=== PATIENT | female | born 1980 | race African-American/Black ===

== ENCOUNTER → 2016-12-18 | Outpatient (CLI) | payer BC, OTHER | END | disposition home or self-care (01) | LOC: LABWHC1 12:26 | PROVIDERS: ATTEND Obstetrics & Gynecology | DX: Z34.81 Encounter for supervision of other normal pregnancy, first trimester (principal); Z3A.00 Weeks of gestation of pregnancy not specified | CPT/HCPCS: 36415; 84702 ==

== ENCOUNTER 2016-12-19 08:29 | Emergency (ER) | payer BC, OTHER ==
--- NOTE | 2016-12-19 08:48 | ED ---
General Adult HPI - General Chief complaint: OB/Uterine Contractions Stated complaint: 6 WEEKS PREG AND BLEEDING Time Seen by Provider: 12/19/16 08:43 Source: patient, RN notes reviewed Mode of arrival: ambulatory Limitations: no limitations - History of Present Illness Initial comments: Patient 36-year-old female who presents emergency room today with a chief complaint of vaginal spotting times one day. She does admit to being 6 weeks and off the last menstrual cycle. She states she is G4, P2, 1 previous miscarriage. Patient denies any abdominal pain or cramping. She states that she came here to the emergency room because she is concerned about possible miscarriage as she's had one in the past. She denies any other complaints or symptoms at this time. Patient denies any recent fever, chills, shortness of breath, chest pain, back pain, abdominal pain, nausea or vomiting, numbness or tingling, dysuria or hematuria, constipation or diarrhea, headaches or visual changes, or any other complaints. - Related Data Home Medications Medication Instructions Recorded Confirmed Ils-Iagw-Tpxcz Acid 1 cap PO DAILY 12/19/16 12/19/16 [-U Capsule (formulary)] Allergies Allergy/AdvReac Type Severity Reaction Status Date / Time No Known Allergies Allergy Verified 12/19/16 08:53 Review of Systems ROS Statement: Those systems with pertinent positive or pertinent negative responses have been documented in the HPI. ROS Other: All systems not noted in ROS Statement are negative. 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 BRAIN METASTASIS Father Family Medical History: Cancer, Diabetes Mellitus, Deep Vein Thrombosis (DVT) General Exam - General Exam Comments Initial Comments: General: The patient is awake and alert, in no distress, and does not appear acutely ill. Eye: Pupils are equal, round and reactive to light, extra-ocular movements are intact. No nystagmus. There is normal conjunctiva bilaterally. No signs of icterus. Ears, nose, mouth and throat: There are moist mucous membranes and no oral lesions. Neck: The neck is supple, there is no tenderness or JVD. Cardiovascular: There is a regular rate and rhythm. No murmur, rub or gallop is appreciated. Respiratory: Lungs are clear to auscultation, respirations are non-labored, breath sounds are equal. No wheezes, stridor, rales, or rhonchi. Gastrointestinal: Soft, non-distended, non-tender abdomen without masses or organomegaly noted. There is no rebound or guarding present. No CVA tenderness. Bowel sounds are unremarkable. Musculoskeletal: Normal ROM, no tenderness. Strength 5/5. Sensation intact. Pulses equal bilaterally 2+. Neurological: A&O x 3. CN II-XII intact, There are no obvious motor or sensory deficits. Coordination appears grossly intact. Speech is normal. Skin: Skin is warm and dry and no rashes or lesions are noted. Psychiatric: Cooperative, appropriate mood & affect, normal judgment. Limitations: no limitations Course Vital Signs 12/19/16 08:33 Temperature 98.4 F Pulse Rate 85 Respiratory 20 Rate Blood Pressure 114/70 O2 Sat by Pulse 98 Oximetry Medical Decision Making - Medical Decision Making Patient's son does show 1. Single live intrauterine with estimated gestational age of 6 weeks 0 days by last menstrual period. Current ultrasound biometry is small and slightly discordant (5 weeks 3 days by crown rump length) . 2. The gestational sac is even smaller measuring 5 weeks 0 days. 3. Given the patient's symptoms and the above findings recommend a short interval follow- up to ensure that appropriate growth. 4. heart rates are 11 bpm is in the normal range for less than 6 week gestation. 5. Corpus luteum in the right ovary. Possible second corpus luteum measuring 1.3 cm in the left ovary versus some other, nonspecific lesion, Intemal vascularity is present. This can also be reassessed at the follow-up. 6. A 2.0 cm left adnexal cyst, likely. Ovarian cyst. Patient's beta hCG reviewed today is 336. Patient's beta hCG from 1 day ago was 320. Patient's Rh+. Remaining labs reviewed. At this time patient will be discharged advised to follow-up with her BEE [facility]CH[facility]. Advised return if any symptoms increase or worsen or for any other concerns. - Lab Data Result diagrams: 12/19/16 08:50 12/19/16 08:50 Lab Results 12/19/16 12/19/16 12/19/16 Range/Units 08:45 08:50 08:50 WBC 5.0 (3.8-10.6) k/uL RBC 3.54 L (3.80-5.40) m/uL Hgb 11.8 (11.4-16.0) gm/dL Hct 34.4 (34.0-46.0) % MCV 97.2 (80.0-100.0) fL MCH 33.5 (25.0-35.0) pg MCHC 34.4 (31.0-37.0) g/dL RDW 12.8 (11.5-15.5) % Plt Count 240 (150-450) k/uL Neutrophils % 60 % Lymphocytes % 29 % Monocytes % 5 % Eosinophils % 3 % Basophils % 0 % Neutrophils # 3.0 (1.3-7.7) k/uL Lymphocytes # 1.5 (1.0-4.8) k/uL Monocytes # 0.3 (0-1.0) k/uL Eosinophils # 0.1 (0-0.7) k/uL Basophils # 0.0 (0-0.2) k/uL Sodium (137-145) mmol/L Potassium (3.5-5.1) mmol/L Chloride (98-107) mmol/L Carbon Dioxide (22-30) mmol/L Anion Gap mmol/L BUN (7-17) mg/dL Creatinine (0.52-1.04) mg/dL Est GFR (MDRD) Af Amer (>60 ml/min/1.73 sqM) Est GFR (MDRD) Non-Af (>60 ml/min/1.73 sqM) Glucose (74-99) mg/dL Calcium (8.4-10.2) mg/dL Total Bilirubin (0.2-1.3) mg/dL AST (14-36) U/L ALT (9-52) U/L Alkaline Phosphatase (38-126) U/L Total Protein (6.3-8.2) g/dL Albumin (3.5-5.0) g/dL HCG, Quant mIU/mL Urine Color Light Yellow Urine Appearance Clear (Clear) Urine pH 6.5 (5.0-8.0) Ur Specific [place] 1.011 (1.001-1.035) Urine Protein Negative (Negative) Urine Glucose (UA) Negative (Negative) Urine Ketones Negative (Negative) Urine Blood Moderate H (Negative) Urine Nitrite Negative (Negative) Urine Bilirubin Negative (Negative) Urine Urobilinogen <2.0 (<2.0) mg/dL Ur Leukocyte Esterase Negative (Negative) Urine RBC <1 (0-5) /hpf Urine WBC <1 (0-5) /hpf Ur Squamous Epith Cells <1 (0-4) /hpf Blood Type A Positive Blood Type Recheck No 12/19/16 Range/Units 08:50 WBC (3.8-10.6) k/uL RBC (3.80-5.40) m/uL Hgb (11.4-16.0) gm/dL Hct (34.0-46.0) % MCV (80.0-100.0) fL MCH (25.0-35.0) pg MCHC (31.0-37.0) g/dL RDW (11.5-15.5) % Plt Count (150-450) k/uL Neutrophils % % Lymphocytes % % Monocytes % % Eosinophils % % Basophils % % Neutrophils # (1.3-7.7) k/uL Lymphocytes # (1.0-4.8) k/uL Monocytes # (0-1.0) k/uL Eosinophils # (0-0.7) k/uL Basophils # (0-0.2) k/uL Sodium 140 (137-145) mmol/L Potassium 4.0 (3.5-5.1) mmol/L Chloride 108 H (98-107) mmol/L Carbon Dioxide 22 (22-30) mmol/L Anion Gap 10 mmol/L BUN 8 (7-17) mg/dL Creatinine 0.63 (0.52-1.04) mg/dL Est GFR (MDRD) Af Amer >60 (>60 ml/min/1.73 sqM) Est GFR (MDRD) Non-Af >60 (>60 ml/min/1.73 sqM) Glucose 99 (74-99) mg/dL Calcium 9.4 (8.4-10.2) mg/dL Total Bilirubin 0.5 (0.2-1.3) mg/dL AST 18 (14-36) U/L ALT 20 (9-52) U/L Alkaline Phosphatase 53 (38-126) U/L Total Protein 7.3 (6.3-8.2) g/dL Albumin 4.1 (3.5-5.0) g/dL HCG, Quant 336.6 mIU/mL Urine Color Urine Appearance (Clear) Urine pH (5.0-8.0) Ur Specific [place] (1.001-1.035) Urine Protein (Negative) Urine Glucose (UA) (Negative) Urine Ketones (Negative) Urine Blood (Negative) Urine Nitrite (Negative) Urine Bilirubin (Negative) Urine Urobilinogen (<2.0) mg/dL Ur Leukocyte Esterase (Negative) Urine RBC (0-5) /hpf Urine WBC (0-5) /hpf Ur Squamous Epith Cells (0-4) /hpf Blood Type Blood Type Recheck Disposition Clinical Impression: Threatened miscarriage Disposition: HOME SELF-CARE Condition: Good Instructions: Threatened Miscarriage (ED) Additional Instructions: Please follow-up with BEE RANCHER over the next 2 days. Please return to emergency room if the symptoms increase or worsen or for any other concerns. Referrals: Juanito Cherry MD [Primary Care Provider] - 1-2 days Erika Lebron DO [Doctor of Osteopathic Medicine] - 1-2 days Time of Disposition: 10:30
[2016-12-19 09:21] LABS: Basophils % (A) 0 %; CH 32.6; CHCM 33.6; Eosinophils # (A) 0.1 k/uL (0-0.7); Eosinophils % (A) 3 %; HCT 34.4 % (34.0-46.0); HDW 2.05; HGB 11.8 gm/dL (11.4-16.0); Luc # (Auto) 0.14; Luc % (Auto) 3; Lymphocytes # (A) 1.5 k/uL (1.0-4.8); Lymphocytes % (A) 29 %; MCH 33.5 pg (25.0-35.0); MCHC 34.4 g/dL (31.0-37.0); MCV 97.2 fL (80.0-100.0); Monocytes # (A) 0.3 k/uL (0-1.0); Monocytes % (A) 5 %; Neutrophils % (A) 60 %; RBC 3.54 m/uL (3.80-5.40); RDW 12.8 % (11.5-15.5); WBC (Perox) 4.82
[2016-12-19 09:25] LABS: Appearance,Urine Clear (Clear); Bilirubin,Urine Negative (Negative); Glucose,Urine (UA) Negative (Negative); Ketones,Urine Negative (Negative); Leukocyte Esterase,Urine Negative (Negative); Nitrite,Urine Negative (Negative); PH, Urine 6.5 (5.0-8.0); Particle Count 1791; Protein,Urine Negative (Negative); RBC,Urine <1 /hpf (0-5); Specific Gravity,Urine 1.011 (1.001-1.035); Squamous Epithelial Cell,Urine <1 /hpf (0-4); UA Billing (MACRO vs. MICRO) MICRO; Urobilinogen,Urine <2.0 mg/dL (<2.0); WBC,Urine <1 /hpf (0-5)
[2016-12-19 09:35] LABS: ALT 20 U/L (9-52); AST 18 U/L (14-36); Alkaline Phosphatase 53 U/L (38-126); Anion Gap 10 mmol/L; Blood Urea Nitrogen 8 mg/dL (7-17); Calcium 9.4 mg/dL (8.4-10.2); Carbon Dioxide 22 mmol/L (22-30); Chloride 108 mmol/L (98-107); Glucose 99 mg/dL (74-99); Non-African American GFR(MDRD) >60 (>60 ml/min/1.73 sqM); Sodium 140 mmol/L (137-145); Total Bilirubin 0.5 mg/dL (0.2-1.3); Total Protein 7.3 g/dL (6.3-8.2)
[2016-12-19 09:47] LABS: HCG,Quantitative Serum 336.6 mIU/mL
--- NOTE | 2016-12-19 10:23 | US ---
EXAMINATION TYPE: US OB <=14 wks transvag DATE OF EXAM: 12/19/2016 9:43 AM COMPARISON: 08/30/2015 CLINICAL HISTORY: 36-year-old female with Pain. Spotting x yesterday. No pain or cramping. Hx of mi scarriage. Hx of cervical CA. No prior US for this Date of LMP: 11/07/2016, EXAM PERFORMED: Transvaginal (TV) and Transabdominal (TA) FINDINGS: EXAM MEASUREMENTS: GESTATIONAL AGE / DATING Dates by LMP: (6 weeks/0 days) EDC: 08/14/2017 Dates by Current Scan: ( 5 weeks/3 days +/- 3 days) EDC: 08/18/2017 MATERNAL ANATOMY Uterus: Measures 9.3 x 5.2 x 5.3 cm. There is a 1.0 x 0.6 x 0.9 cm hypoechoic area within the anterio r right fundal myometrium suggestive of a focal fibroid. Right Ovary: 3.2 x 1.9 x 2.6 cm Left Ovary: 2.9 x 1.8 x 1.8 cm Post CDS / Adnexa: no free fluid. Cystic lesion seen in left adnexa = 2.0 x 2.0 x 1.7 cm, probable p araovarian cyst. Presence of corpus luteal cyst: Right ovary, 1.4 x 1.1 x 1.0 cm. Left ovarian lesion is hypoechoic wi th a internal vascularity measuring 1.3 x 0.8 x 1.2 cm. 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 Cystic lesion seen in left adnexa. FHT appears low. GS appears small with limited amniotic fluid. No YS seen. Bilateral ovar tami lesions. IMPRESSION: 1. Single live intrauterine with estimated gestational age of 6 weeks 0 days by LMP. Curren t ultrasound biometry is smaller and slightly discordant (5 weeks 3 days by crown-rump length). 2. The gestational sac is even smaller measuring at 5 weeks 0 days. 3. Given the patient's symptoms and the above findings, recommend short interval follow-up to ensure appropriate growth. 4. heart rate of 111 BPM is in the normal range for a less than 6.3 week gestation. 5. Corpus luteum in the right ovary. Possible second corpus luteum measuring 1.3 cm in the left ovary versus some other, nonspecific lesion. Internal vascularity is present. This can also be reassessed at follow-up. 6. A 2.0 cm left adnexal cyst, likely paraovarian cyst.
[2016-12-19 10:51] VITALS: BP 120/59; PULSE 95; RESP 16; TEMP 99.1
== END 2016-12-19 10:49 | disposition home or self-care (01) ==
LOC: EC 08:29
DX: O20.0 Threatened abortion (principal); O34.81 Maternal care for other abnormalities of pelvic organs, first trimester; N83.202 Unspecified ovarian cyst, left side; Z79.899 Other long term (current) drug therapy; Z3A.01 Less than 8 weeks gestation of pregnancy
CPT/HCPCS: 36415; 76801; 76817; 80053; 81001; 84702; 85025; 86900; 86901; 87086; 99284

== ENCOUNTER → 2016-12-20 | Outpatient (CLI) | payer BC, OTHER | END | disposition home or self-care (01) | LOC: LABWHC1 13:45 | PROVIDERS: ATTEND Obstetrics & Gynecology | DX: Z34.81 Encounter for supervision of other normal pregnancy, first trimester (principal); Z3A.00 Weeks of gestation of pregnancy not specified | CPT/HCPCS: 36415; 84702 ==

== ENCOUNTER → 2016-12-24 | Outpatient (CLI) | payer BC, OTHER ==
--- NOTE | 2016-12-24 11:22 | US ---
EXAMINATION TYPE: US OB <=14 wks transvag DATE OF EXAM: 12/24/2016 11:00 AM COMPARISON: 12/19/2016 CLINICAL HISTORY: Abn Clinical Findin R68.89,Irregular rise in B HCG. hcg levels not elevating EXAM PERFORMED: Transvaginal (TV) and Transabdominal (TA) EXAM MEASUREMENTS: GESTATIONAL AGE / DATING Physician Established: not established Dates by LMP: ( 6 weeks/5 days) EDC: 08/14/2016 Dates by First Scan: (6 weeks/1 days) EDC: 08/18/2016 Dates by Current Scan for: no IUP seen EDC: MATERNAL ANATOMY Uterus: 8.5 x 3.8 x 6.0 cm fundal hypoechoic area 0.7 x0.7 x 0.8 cm seen prior study Right Ovary: 1.9 x 2.6 x 2.5 cm Left Ovary: 2.5 x 1.8 x 1.8 cm Post CDS / Adnexa: left cyst 2.0 x 1.3 x 1.8 cm Presence of free fluid: no Presence of corpus luteal cyst: left Presence of subchorionic bleed: no GESTATION / SURVEY IUP: No IUP seen at this time Date of LMP: 11/07/2016 Beta HcG (if available): na Cystic focus associated with the left adnexa as on prior. IMPRESSION: There may be some local fluid along the endometrium, retained products, follow-up suggested. No pregn mirian is identified.
== END | disposition home or self-care (01) ==
LOC: RADUSWWP 10:21
PROVIDERS: ATTEND Obstetrics & Gynecology
DX: O28.1 Abnormal biochemical finding on antenatal screening of mother (principal); Z3A.00 Weeks of gestation of pregnancy not specified
CPT/HCPCS: 76801; 76817

== ENCOUNTER → 2017-01-23 | Outpatient (CLI) | payer BC, OTHER ==
--- NOTE | 2017-01-23 13:21 | XR ---
EXAMINATION TYPE: XR cervical spine comp DATE OF EXAM ORDERED: 01/23/2017 HISTORY: M54.2 Cervicalgia. COMPARISON: None. FINDINGS: There is a mild reversal of normal cervical lordosis. Alignment is normal. Atlantoaxial re lationships are normal. There is disc space loss at C5-6 and C6-7. There is mild hypertrophic spondylosis at C6-7. There is i ntervertebral foraminal narrowing on the left at C3-4 and C4-5 as well as C6-7 and on the right at C3 -4 and C4-5. The uncovertebral joints are unremarkable. Prevertebral soft tissues are normal. IMPRESSION: 1. NO ACUTE OSSEOUS LESION. 2. MILD DEGENERATIVE CHANGE. 3. MULTILEVEL INTERVERTEBRAL FORAMINAL NARROWING.
== END | disposition home or self-care (01) ==
LOC: RADXRMAIN 11:53
PROVIDERS: ATTEND Family Medicine
DX: M99.71 Connective tissue and disc stenosis of intervertebral foramina of cervical region (principal); M47.812 Spondylosis without myelopathy or radiculopathy, cervical region
CPT/HCPCS: 72050

== ENCOUNTER 2017-06-30 15:42 | Emergency (ER) | payer BC, OTHER ==
--- NOTE | 2017-06-30 17:40 | XR ---
EXAMINATION TYPE: XR foot complete RT DATE OF EXAM: 06/30/2017 COMPARISON: NONE HISTORY: Ankle pain TECHNIQUE: 3 views FINDINGS: Metatarsals appear intact. I see no fracture nor dislocation. Joint spaces are normal. IMPRESSION: Negative right foot exam.
--- NOTE | 2017-06-30 17:44 | ED ---
Extremity Problem HPI - General Chief complaint: Extremity Problem,Nontraumatic Stated complaint: ankle injury Time Seen by Provider: 06/30/17 16:53 Source: patient, RN notes reviewed Mode of arrival: ambulatory Limitations: no limitations - History of Present Illness Initial comments: This is a 37-year-old female who presents to the emergency department with chief complaint of right ankle and foot pain. Patient denies any specific injury or trauma. She states she fell going down the stairs a week ago but does not remember injuring her right lower extremity. She states that 3 days ago her medial right foot began to hurt. She states that this morning her right ankle became swollen. She states pain is most prevalent with plantar flexion of the foot. She states she ambulates normally and is able to bear weight. Denies fever, chills, chest pain, shortness of breath, abdominal pain, nausea or vomiting, constipation or diarrhea, dysuria or hematuria, numbness or tingling, headache or vision changes. - Related Data Home Medications Medication Instructions Recorded Confirmed Grd-Untz-Tyigw Acid 1 cap PO DAILY 12/19/16 12/19/16 [-U Capsule (formulary)] Previous Rx's Medication Instructions Recorded Ibuprofen 600 mg PO Q6HR #20 tablet 06/30/17 Allergies Allergy/AdvReac Type Severity Reaction Status Date / Time No Known Allergies Allergy Verified 06/30/17 15:48 Review of Systems ROS Statement: Those systems with pertinent positive or pertinent negative responses have been documented in the HPI. ROS Other: All systems not noted in ROS Statement are negative. 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 BRAIN METASTASIS Father Family Medical History: Cancer, Diabetes Mellitus, Deep Vein Thrombosis (DVT) General Exam - General Exam Comments Initial Comments: General: Awake and alert, well-developed; in no apparent distress. HEENT: Head atraumatic, normocephalic. Pupils are equal, round and reactive to light. Extraocular movements intact. Oropharynx moist without erythema or exudate. Neck: Supple. Normal ROM. Cardiovascular: Regular rate and rhythm. No murmurs, rubs or gallops. Chest symmetrical. Respiratory: Lungs clear to auscultation bilaterally. No wheezes, rales or rhonchi. Normal respiratory effort with no use of accessory muscles. Musculoskeletal: Patient has normal active and passive range of motion of right ankle and foot. There is tenderness on palpation of dorsal aspect of foot. There is mild swelling of the ankle noted but no tenderness on palpation. Sensation is intact. Pedal pulses are 2+ equal and palpable bilaterally. Skin: [place], warm and dry without rashes or lesions. Neurological: Alert and oriented x3. CN II-XII grossly intact. Speech is fluent and answers are appropriate. No focal neuro deficits. Psychiatric: Normal mood and affect. No overt signs of depression or anxiety noted. Limitations: no limitations Course Vital Signs 06/30/17 15:46 Temperature 98.1 F Pulse Rate 79 Respiratory 20 Rate Blood Pressure 154/72 O2 Sat by Pulse 100 Oximetry Medical Decision Making - Medical Decision Making This is a 37-year-old female who presents to the emergency department with chief complaint of right foot pain. Patient denies any specific injury or trauma. Pain is elicited at dorsal aspect of right foot with plantarflexion. X- ray of ankle and foot reveal no acute fractures or dislocations. Patient likely suffering from a tendinitis of the extensor tendon of right great toe. Patient will be discharged home with a prescription for ibuprofen. Recommended rest and ice. She is to follow-up with her primary care provider in 1-2 days. Patient is in agreement with plan voices understanding. All questions were answered. - Radiology Data Radiology results: report reviewed X-ray right foot findings: Metatarsals intact. I see no fracture nor dislocation. Joint spaces are normal. Impression: Negative right foot exam. X-ray right ankle findings: Ankle mortise is anatomic. I see no fracture nor dislocation. Joint spaces are fairly normal. Impression: Negative right ankle exam Disposition Clinical Impression: Tendinitis of right foot Disposition: HOME SELF-CARE Condition: Good Instructions: Tendinitis (ED) Additional Instructions: Please take medications as prescribed. Please follow up with primary care provider within 1-2 days. Return to emergency department if symptoms should worsen or any concerns arise. Prescriptions: Ibuprofen 600 mg PO Q6HR #20 tablet Referrals: Juanito Cherry MD [Primary Care Provider] - 1-2 days Time of Disposition: 18:15
--- NOTE | 2017-06-30 17:54 | XR ---
EXAMINATION TYPE: XR ankle complete RT DATE OF EXAM: 06/30/2017 COMPARISON: NONE HISTORY: Pain TECHNIQUE: 3 views FINDINGS: Ankle mortise is anatomic. I see no fracture nor dislocation. Joint spaces are fairly keagan l. IMPRESSION: Negative right ankle exam
[2017-06-30 18:20] VITALS: BP 134/75; PULSE 72; RESP 18; TEMP 98.3
== END 2017-06-30 18:20 | disposition home or self-care (01) ==
LOC: EC 15:42
DX: M77.51 Other enthesopathy of right foot and ankle (principal); M79.89 Other specified soft tissue disorders; M25.571 Pain in right ankle and joints of right foot; Z79.899 Other long term (current) drug therapy
CPT/HCPCS: 99283

== ENCOUNTER → 2017-09-01 | Outpatient (CLI) | payer OTHER ==
[2017-09-01 17:13] LABS: ALT 22 U/L (9-52); AST 22 U/L (14-36); Albumin 4.3 g/dL (3.5-5.0); Alkaline Phosphatase 58 U/L (38-126); Anion Gap 9 mmol/L; Blood Urea Nitrogen 10 mg/dL (7-17); Carbon Dioxide 30 mmol/L (22-30); Chloride 103 mmol/L (98-107); Glucose 83 mg/dL (74-99); Potassium 3.8 mmol/L (3.5-5.1); Sodium 142 mmol/L (137-145); Total Bilirubin 0.2 mg/dL (0.2-1.3); Total Protein 7.3 g/dL (6.3-8.2); Uric Acid 4.5 mg/dL (3.7-7.4)
[2017-09-01 17:14] LABS: C Reactive Protein <5.0 mg/L (<10.0)
[2017-09-01 17:27] LABS: T4, Free (Free Thyroxine) 0.74 ng/dL (0.78-2.19)
[2017-09-02 01:33] LABS: Rheumatoid Factor 4 IU/mL (0-15)
== END | disposition home or self-care (01) ==
LOC: LABWHC1 16:43
PROVIDERS: ATTEND Family Medicine
DX: M25.871 Other specified joint disorders, right ankle and foot (principal); M25.562 Pain in left knee; R60.0 Localized edema
CPT/HCPCS: 36415; 80053; 84439; 84443; 84550; 85652; 86038; 86140; 86431

== ENCOUNTER → 2017-09-01 | Outpatient (CLI) | payer OTHER ==
[2017-09-01 17:01] LABS: Basophils % (A) 0 %; Eosinophils # (A) 0.1 k/uL (0-0.7); Eosinophils % (A) 1 %; HCT 38.4 % (34.0-46.0); HGB 12.6 gm/dL (11.4-16.0); Lymphocytes # (A) 2.2 k/uL (1.0-4.8); Lymphocytes % (A) 40 %; MCHC 32.8 g/dL (31.0-37.0); MCV 97.6 fL (80.0-100.0); Mean Platelet Volume 6.9; Monocytes # (A) 0.3 k/uL (0-1.0); Monocytes % (A) 6 %; Neutrophils # (A) 2.7 k/uL (1.3-7.7); Neutrophils % (A) 49 %; Platelet Count 255 k/uL (150-450); RBC 3.93 m/uL (3.80-5.40); RDW 12.5 % (11.5-15.5); WBC 5.6 k/uL (3.8-10.6)
== END | disposition home or self-care (01) ==
LOC: LABPAT 16:40
PROVIDERS: ATTEND Obstetrics & Gynecology
DX: Z01.812 Encounter for preprocedural laboratory examination (principal)
CPT/HCPCS: 36415; 80053; 84439; 84443; 84550; 85025; 85652; 86038; 86140; 86431

== ENCOUNTER 2017-09-09 06:58 | Day surgery (SDC) | payer BC, OTHER ==
[2017-09-04 15:07] VITALS: BMI 26.6
--- NOTE | 2017-09-08 17:14 | P.HPOB ---
History of Present Illness H&P Date: 09/08/17 Chief Complaint: Family Planning 37 year old presents for Laparoscopic tubal ligation. Review of Systems All systems: negative Constitutional: Denies chills, Denies fever Eyes: denies blurred vision, denies pain Ears, nose, mouth and throat: Denies headache, Denies sore throat Cardiovascular: Denies chest pain, Denies shortness of breath Respiratory: Denies cough Gastrointestinal: Denies abdominal pain, Denies diarrhea, Denies nausea, Denies vomiting Genitourinary: Denies dysuria, Denies hematuria Musculoskeletal: Denies myalgias Integumentary: Denies pruritus, Denies rash Neurological: Denies numbness, Denies weakness Psychiatric: Denies anxiety, Denies depression Endocrine: Denies fatigue, Denies weight change Past Medical History Past Medical History: Asthma Additional Past Medical History / Comment(s): DJD neck and back, History of Any Multi-Drug Resistant Organisms: None Reported Past Surgical History: Cholecystectomy Additional Past Surgical History / Comment(s): bunionectomy, djd in neck and back, LEEP procedure Past Anesthesia/Blood Transfusion Reactions: No Reported Reaction Smoking Status: Never smoker - Past Family History Mother Family Medical History: Cancer Additional Family Medical History / Comment(s): SMALL CELL LUNG CANCER. BRAIN METASTASIS Father Family Medical History: Cancer, Diabetes Mellitus, Deep Vein Thrombosis (DVT) Medications and Allergies Home Medications Medication Instructions Recorded Confirmed Type HYDROcodone/APAP 10-325MG [[place] 1 tab PO Q6H PRN 09/04/17 09/04/17 History 10-325] Allergies Allergy/AdvReac Type Severity Reaction Status Date / Time No Known Allergies Allergy Verified 09/04/17 14:45 Exam Osteopathic Statement: *. No significant issues noted on an osteopathic structural exam other than those noted in the History and Physical/Consult. Heart: RRR Lungs: CTAB ABdomen: soft, nontender Extremeties: neg david's Assessment and Plan (1) Family planning Status: Acute Code(s): Z30.09 - ENCOUNTER FOR OTH GENERAL CNSL AND ADVICE ON CONTRACEPTION SNOMED Code(s): 981208230 Plan: 1. Laparoscopic tubal ligation
[~2017-09-09 06:58] MED LIST: DEXAMETHASONE SOD PHOSPHATE 10 MG/ML 1 ML VIAL IV ONE; HYDROmorphone 0.5 MG/0.5 ML SYRINGE IVP PRN; LACTATED RINGERS 1,000 ML IV SCH; LIDOCAINE 1% 20 ML VIAL (10MG/ML) FOR IV START INTRADERMA PRN; Pre Op ABX Message 1 EACH MISC MISCELLANE ONE; SCOPOLAMINE 1.5MG/72HR PATCH TRANSDERM ONE
[2017-09-09] MEDS ORDERED: BUPIVACAINE (PF) 0.25% 30 ML VIAL SQ ONE ×2 (07:29)
[2017-09-09 07:36] VITALS: RESP 16
[2017-09-09] MEDS: ONDANSETRON 4 MG/2 ML VIAL IVP ONE ×2 (07:37→09:28)
[2017-09-09] MEDS ORDERED: KETOROLAC 30 MG/ML 1 ML VIAL ONE (07:56)
[2017-09-09] MEDS ORDERED: VECURONIUM 10 MG VIAL IV ONE (07:56)
[2017-09-09] MEDS ORDERED: HYDROmorphone (PF) 1 MG/ML ONE (07:56)
[2017-09-09] MEDS ORDERED: LIDOCAINE 1% INJ 10MG/ML (20 ML MDV) ONE (07:56)
[2017-09-09] MEDS ORDERED: MIDAZOLAM 2 MG/2 ML VIAL ONE (07:56)
[2017-09-09] MEDS ORDERED: GLYCOPYRROLATE 0.2 MG/ML 2 ML VIAL ONE (07:56)
[2017-09-09] MEDS ORDERED: SUCCINYLCHOLINE CHLORIDE 100 MG/5 ML SYR IV ONE (07:56)
[2017-09-09] MEDS ORDERED: PROPOFOL 10 MG/ML 20 ML VIAL IV ONE (07:56)
[2017-09-09] MEDS ORDERED: NEOSTIGMINE 1 MG/ML 10 ML VIAL ONE (07:56)
[2017-09-09] MEDS ORDERED: fentaNYL (PF) 50 MCG/ML 2 ML AMP ONE (07:56)
--- NOTE | 2017-09-09 08:39 | P.OP ---
Date of Procedure: 09/09/17 Preoperative Diagnosis: 1. FAmily Planning Postoperative Diagnosis: 1. Family Panning Procedure(s) Performed: Laparoscopic tubal ligation Anesthesia: RAMSEY Surgeon: Erika Lebron Estimated Blood Loss (ml): 5 IV fluids (ml): 700 Urine output (ml): 40 Pathology: none sent Condition: stable Disposition: PACU Operative Findings: normal uterus, tubes and ovaries. bilateral paratubal cysts Description of Procedure: Patient was taken to the operating room where general anesthesia was obtained without difficulty. She was prepped and draped in normal sterile fashion in the dorsal lithotomy position, legs placed in the Jaciel stirrups. Bladder drained of all urine. [place] speculum placed in the vagina and the anterior lip the cervix was grasped with single-tooth tenaculum. The uterus is sounded to 10 cm and the kroner manipulator was placed. Attention was then turned to the abdomen and gloves were changed. A 10 mm infraumbilical incision was made the scalpel and 10 mm optical trocar was placed under direct visualization. A 5 mm suprapubic Incision was made and a 5 mm optical trocar was placed under direct visualization. Survey of the pelvis revealed normal uterus tubes and ovaries. The left fallopian tube was grasped with a Kleppinger and fulgurated 2 -3 cm on this side in the ampullar portion. The right fallopian tube was grasped with a Kleppinger and fulgurated 2-3 cm in the ampullar portion. All instruments were then removed from the abdomen and vagina. The 10 mm infraumbilical incision was closed with 0 Vicryl and the fascial layer and then 4-0 Vicryl in a subcuticular fashion. The 5 mm incision was closed with 4-0 Vicryl in a subcuticular fashion. Patient tolerated procedure well, sponge and instrument counts correct 2 and she was taken to recovery room in stable condition.
[2017-09-09 08:58] VITALS: TEMP 97.2
[2017-09-09] MEDS ORDERED: LACTATED RINGERS 1,000 ML IV ONE (09:42)
[2017-09-09] MEDS ORDERED: MORPHINE SULFATE 4 MG/ML SYRINGE IVP ONE (09:53)
[2017-09-09 11:15] VITALS: BP 135/75; PULSE 75
== END 2017-09-09 11:45 | disposition home or self-care (01) ==
LOC: OR 06:58
PROVIDERS: ATTEND Obstetrics & Gynecology
DX: Z30.2 Encounter for sterilization (principal); N83.8 Other noninflammatory disorders of ovary, fallopian tube and broad ligament; J45.909 Unspecified asthma, uncomplicated
CPT/HCPCS: 81025; 58670; J2250; J2270; J1100; J2710; J2405; J2001; J3010; J1885; J1170; J0330; J2704

== ENCOUNTER → 2018-10-19 | Outpatient (CLI) | payer OTHER ==
--- NOTE | 2018-10-19 11:44 | MM ---
Reason for exam: screening (asymptomatic). Baseline mammogram. History: Patient has history of other cancer at age 36. Family history of breast cancer in mother at age 48 and breast cancer in maternal grandmother at age 50. Physical Findings: Nurse Summary: 1 x 1cm nodule in the left breast at 1 o'clock at nipple (nurse ts). MG 3D Screening Mammo W/Cad Bilateral CC and MLO view(s) were taken. There are scattered fibroglandular densities. There is no discrete abnormality. Palpable marker on the left. These results were verbally communicated with the patient and result sheet given to the patient on 10/19/18. ASSESSMENT: Incomplete: need additional imaging evaluation, BI-RAD 0 RECOMMENDATION: Ultrasound of the left breast. (targeted to palpable)
--- NOTE | 2018-10-19 11:45 | USB ---
Reason for exam: additional evaluation requested from abnormal screening. History: Patient has history of other cancer at age 36. Family history of breast cancer in mother at age 48 and breast cancer in maternal grandmother at age 50. US Breast Workup Limited LT Left limited breast ultrasound including focal area of concern, retroareolar and axilla demonstrates no cystic or solid lesion seen. Scanned 6-9 o'clock, particular attention 7 o'clock near the nipple at the nurse palpated site. These results were verbally communicated with the patient and result sheet given to the patient on 10/19/18. ASSESSMENT: Negative, BI-RAD 1 RECOMMENDATION: Return to routine screening mammogram schedule for both breasts. Manage patient on a clinical basis. Patient should continue monthly self breast exams. A negative report should not preclude additional follow up of suspicious palpable abnormalities.
== END | disposition home or self-care (01) ==
LOC: RADMAMWWP 10:22
PROVIDERS: ATTEND Family Medicine
DX: Z12.31 Encounter for screening mammogram for malignant neoplasm of breast (principal); R92.8 Other abnormal and inconclusive findings on diagnostic imaging of breast
CPT/HCPCS: 77063; 77067

== ENCOUNTER → 2018-12-26 | Outpatient (CLI) | payer OTHER ==
[2018-12-26 13:02] LABS: Basophils % (A) 0 %; Eosinophils # (A) 0.1 k/uL (0-0.7); Eosinophils % (A) 3 %; HCT 39.1 % (34.0-46.0); Lymphocytes % (A) 36 %; MCH 32.2 pg (25.0-35.0); MCHC 33.1 g/dL (31.0-37.0); MCV 97.2 fL (80.0-100.0); Monocytes # (A) 0.3 k/uL (0-1.0); Monocytes % (A) 6 %; Neutrophils # (A) 2.9 k/uL (1.3-7.7); Neutrophils % (A) 53 %; Platelet Count 289 k/uL (150-450); RBC 4.02 m/uL (3.80-5.40); RDW 13.1 % (11.5-15.5); WBC 5.5 k/uL (3.8-10.6)
[2018-12-26 16:10] LABS: Albumin 4.2 g/dL (3.80-4.90); Albumin/Globulin Ratio 1.68 (1.60-3.17); Anion Gap 5.7 mmol/L (4.00-12.00); Calcium 9.8 mg/dL (8.7-10.3); Carbon Dioxide 27.3 mmol/L (21.6-31.8); Globulin 2.5 g/dL (1.6-3.3); LDL Cholesterol,Calculated 60.2 mg/dL (0.0-131.0); Total Bilirubin 0.5 mg/dL (0.2-1.2); Total Protein 6.7 g/dL (6.2-8.2); VLDL Calculation 15.8 mg/dL (5.00-40.00)
[2018-12-26 16:19] LABS: T4, Free (Free Thyroxine) 0.9 ng/dL (0.80-1.80)
== END | disposition home or self-care (01) ==
LOC: LABMAIN 12:25
PROVIDERS: ATTEND Family Medicine
DX: Z51.81 Encounter for therapeutic drug level monitoring (principal); Z79.891 Long term (current) use of opiate analgesic
CPT/HCPCS: 36415; 80053; 80061; 84439; 84443; 85025

== ENCOUNTER 2019-06-11 13:38 | Emergency (ER) | payer OTHER ==
[2019-06-11] MEDS ORDERED: NITROGLYCERIN SL TABS 0.4 MG TAB SUBLINGUAL STA (14:12)
[2019-06-11] MEDS ORDERED: ASPIRIN 81 MG PO STA (14:12)
[2019-06-11 14:41] VITALS: RESP 18
--- NOTE | 2019-06-11 14:49 | ED ---
Chest Pain HPI - General Chief Complaint: Chest Pain Stated Complaint: Palpitations Time Seen by Provider: 06/11/19 13:53 Source: patient Mode of arrival: ambulatory - History of Present Illness Initial Comments: Patient is a 39-year-old female with no significant past medical history is presenting to the emergency department with a chief complaint of shortness of breath and chest pain. Patient she has been battling upper respiratory infection for The last several days but never developed a cough. She states over the last today she developed a gradual onset of palpitations and shortness of breath. Patient reports that she feels like her heart is racing, even at rest sometimes. Patient denies any wheezing. Patient is not a smoker, denies asthma or COPD. Patient does report dyspnea on exertion. Patient reports that her voice is slightly changed due to the recent upper respiratory infection. Patient reports mild lightheadedness but denies any dizziness, headache, nausea, vomiting or blurry vision. Patient denies one-sided weakness or paresthesias. Patient denies cardiac history, hypertension, hypercholesterolemia, diabetes, smoking or family history of heart disease. - Related Data Home Medications Medication Instructions Recorded Confirmed HYDROcodone/APAP 10-325MG [[place] 1 tab PO Q6H PRN 09/04/17 06/11/19 10-325] Allergies Allergy/AdvReac Type Severity Reaction Status Date / Time No Known Allergies Allergy Verified 06/11/19 17:05 Review of Systems ROS Statement: Those systems with pertinent positive or pertinent negative responses have been documented in the HPI. ROS Other: All systems not noted in ROS Statement are negative. EKG Findings - EKG Comments: EKG Findings:: Normal sinus rhythm, no ST changes. Ventricular rate 98, HI interval 144, QRS duration 82, QT/QTC 350/446 Past Medical History Additional Past Medical History / Comment(s): chronic back pain History of Any Multi-Drug Resistant Organisms: None Reported Past Surgical History: Cholecystectomy, Tubal Ligation Additional Past Surgical History / Comment(s): bunionectomy, djd in neck and back Past Anesthesia/Blood Transfusion Reactions: No Reported Reaction Past Psychological History: No Psychological Hx Reported Smoking Status: Never smoker Past Alcohol Use History: Occasional Past Drug Use History: None Reported - Past Family History Mother Family Medical History: Cancer Additional Family Medical History / Comment(s): SMALL CELL LUNG CANCER. BRAIN METASTASIS Father Family Medical History: Cancer, Diabetes Mellitus, Deep Vein Thrombosis (DVT) General Exam Limitations: no limitations General appearance: alert, in no apparent distress Head exam: Present: atraumatic, normocephalic, normal inspection Eye exam: Present: normal appearance, PERRL, EOMI Pupils: Present: normal accommodation ENT exam: Present: normal exam, normal oropharynx, mucous membranes moist, normal external ear exam Neck exam: Present: normal inspection, full ROM Respiratory exam: Present: normal lung sounds bilaterally. Absent: wheezes, chest wall tenderness Cardiovascular Exam: Present: regular rate, normal rhythm, normal heart sounds Extremities exam: Present: normal inspection, full ROM, normal capillary refill Back exam: Present: normal inspection, full ROM Neurological exam: Present: alert, oriented X3 Psychiatric exam: Present: normal affect, normal mood Skin exam: Present: warm, intact, normal color Course Vital Signs 06/11/19 06/11/19 06/11/19 13:43 14:36 14:40 Temperature 98.1 F Pulse Rate 111 H 98 95 Respiratory 18 20 18 Rate Blood Pressure 147/102 126/81 121/80 O2 Sat by Pulse 100 98 99 Oximetry 06/11/19 06/11/19 06/11/19 16:00 16:30 17:00 Temperature Pulse Rate 80 78 84 Respiratory 25 H 18 23 Rate Blood Pressure 132/88 130/89 136/91 O2 Sat by Pulse 100 100 100 Oximetry 06/11/19 06/11/19 17:30 19:11 Temperature 97.9 F Pulse Rate 78 83 Respiratory 18 18 Rate Blood Pressure 131/83 139/78 O2 Sat by Pulse 100 98 Oximetry Chest Pain MDM - Differential Diagnosis ACS - MDM Patient is a 39-year-old female presenting to the emergency department with chief complaint of palpitations shortness of breath. This is been ongoing for the past 2 days. Physical examination is unremarkable. Chest x-ray is negative. EKG is indicative of left axis deviation with no ST changes. Initial troponins are negative. D-dimer negative Patient has a heart score of 2. Patient reports decrease in shortness of breath and palpitations although they're still present. Patient denies any chest pain. Patient reports that she wants to leave and she will be evaluated by sole scraper which she has a close relationship with. Secondary troponins negative. Strict return parameters were thoroughly discussed with patient was understanding and agreeable. Case discussed physician. - Wells Criteria Clinical Symptoms of DVT: (0) No No Alternative Diagnosis: (0) No Immobilization of Surgery in Previous 4 Weeks: (0) No Previous DVT/PE: (0) No Hemoptysis: (0) No Malignancy: (0) No Disposition Clinical Impression: Palpitations with regular cardiac rhythm, Shortness of breath Disposition: HOME SELF-CARE Condition: Stable Instructions (If sedation given, give patient instructions): Chest Pain (ED) Additional Instructions: Please follow up with a sole scraper. Please return to emergency department if symptoms worsen. Is patient prescribed a controlled substance at d/c from ED?: No Referrals: Juainto Cherry MD [Primary Care Provider] - 1-2 days Alban Pinedo MD [STAFF PHYSICIAN] - 1-2 days Time of Disposition: 18:55
[2019-06-11 14:51] LABS: Basophils # (A) 0.1 k/uL (0-0.2); Basophils % (A) 1 %; Eosinophils % (A) 1 %; HCT 37.7 % (34.0-46.0); HGB 12.9 gm/dL (11.4-16.0); Lymphocytes % (A) 31 %; MCHC 34.1 g/dL (31.0-37.0); MCV 96.6 fL (80.0-100.0); Mean Platelet Volume 6.6; Monocytes # (A) 0.4 k/uL (0-1.0); Monocytes % (A) 6 %; Neutrophils # (A) 3.6 k/uL (1.3-7.7); Neutrophils % (A) 57 %; Platelet Count 296 k/uL (150-450); RDW 12.3 % (11.5-15.5); WBC 6.2 k/uL (3.8-10.6)
[2019-06-11 15:04] LABS: ALT 30 U/L (9-52); AST 28 U/L (14-36); African American GFR (CKD) >90 (>60 ml/min/1.73 sqM); Albumin 4.4 g/dL (3.5-5.0); Alkaline Phosphatase 62 U/L (38-126); Anion Gap 10 mmol/L; Blood Urea Nitrogen 8 mg/dL (7-17); Calcium 10.5 mg/dL (8.4-10.2); Carbon Dioxide 25 mmol/L (22-30); Chloride 107 mmol/L (98-107); Glucose 90 mg/dL (74-99); Magnesium 1.9 mg/dL (1.6-2.3); Potassium 3.7 mmol/L (3.5-5.1); Sodium 142 mmol/L (137-145); Total Bilirubin 0.3 mg/dL (0.2-1.3); Total Protein 7.9 g/dL (6.3-8.2)
[2019-06-11 15:08] LABS: D-Dimer 0.4 mg/L FEU (<0.60); INR 0.9 (<1.2); Partial Thromboplastin Time 24.3 sec (22.0-30.0); Prothrombin Time 9.9 sec (9.0-12.0)
--- NOTE | 2019-06-11 15:26 | XR ---
EXAMINATION TYPE: XR chest 2V DATE OF EXAM: 06/11/2019 COMPARISON: 10/25/2015 TECHNIQUE: PA and lateral views submitted. HISTORY: Chest pain FINDINGS: The lungs are clear and there is no pneumothorax, pleural effusion, or focal pneumonia. No overt fa ilure. Hypertrophic change of the spine. IMPRESSION: 1. No acute process.
[2019-06-11 19:13] VITALS: BP 139/78; PULSE 83; TEMP 97.9
== END 2019-06-11 19:11 | disposition home or self-care (01) ==
LOC: EC 13:38
DX: R00.2 Palpitations (principal); R06.02 Shortness of breath; R07.9 Chest pain, unspecified
CPT/HCPCS: 36415; 71046; 80053; 83735; 84484; 85025; 85379; 85610; 85730; 93005; 99285

== ENCOUNTER → 2021-03-01 | Outpatient (CLI) | payer OTHER ==
--- NOTE | 2021-03-05 08:09 | MM ---
Reason for exam: screening (asymptomatic). Last mammogram was performed 1 year ago. History: Patient has history of other cancer at age 36. Family history of breast cancer in paternal aunt, breast cancer in mother at age 48, and breast cancer in maternal grandmother at age 50. Physical Findings: A clinical breast exam by your physician is recommended on an annual basis and results should be correlated with mammographic findings. MG 3D Screening Mammo W/Cad Bilateral CC and MLO view(s) were taken. Prior study comparison: February 28, 2020, bilateral MG 3d screening mammo w/cad. October 19, 2018, bilateral MG 3d screening mammo w/cad. The breast tissue is heterogeneously dense. This may lower the sensitivity of mammography. There is no discrete abnormality. No significant changes when compared with prior studies. ASSESSMENT: Negative, BI-RAD 1 RECOMMENDATION: Routine screening mammogram of both breasts in 1 year.
== END | disposition home or self-care (01) ==
LOC: RADMAMWWP 10:08
PROVIDERS: ATTEND Obstetrics & Gynecology
DX: Z12.31 Encounter for screening mammogram for malignant neoplasm of breast (principal); Z85.9 Personal history of malignant neoplasm, unspecified; Z80.3 Family history of malignant neoplasm of breast
CPT/HCPCS: 77063; 77067

== ENCOUNTER → 2021-11-14 | Outpatient (CLI) | payer OTHER ==
--- NOTE | 2021-11-14 16:45 | XR ---
EXAMINATION TYPE: XR lumbosacral spine min 4V DATE OF EXAM: 11/14/2021 COMPARISON: None HISTORY: Pain degenerative disc changes TECHNIQUE: 5V lumbar spine FINDINGS: There 5 lumbar-type vertebral bodies. The pedicles are intact. Very rudimentary T12 ribs ar e present. Mild facet degenerative changes present L4-5 L5-S1. No spondylolytic defects are evident. Disc heights are preserved. Vertebral body heights are preserved. Alignment is normal. IMPRESSION: 1. Minimal degenerative changes lower lumbar spine facets.
--- NOTE | 2021-11-14 16:49 | XR ---
EXAMINATION TYPE: XR cervical spine comp DATE OF EXAM: 11/14/2021 COMPARISON: 01/23/2017 HISTORY: Degenerative disc changes TECHNIQUE: 5 view cervical spine FINDINGS: On the right foramen there is Mild C3-4, C4-5 foraminal narrowing present. Minimal C5-6 for aminal narrowing may be present. Moderate C6-7 foraminal narrowing is present. On the left foramen there is moderate left C3-4 foraminal narrowing and mild C4-5 foraminal narrowing . Height loss throughout the straightened cervical spine. Posterior spinal lamellar line appears intact . Tip of the odontoid is obscured by overlying incisors. COMPARISON: There may be slight progression of the degenerative disc disease from the comparison stud y. Foraminal stenosis appears similar. IMPRESSION: 1. Mild to moderate foraminal stenosis discussed above, greater on the right. This appears stable fr om comparison. 2. Mild diffuse degenerative disc disease throughout the cervical spine.
== END | disposition home or self-care (01) ==
LOC: RADXRMAIN 09:53
PROVIDERS: ATTEND Family Medicine
DX: M47.817 Spondylosis without myelopathy or radiculopathy, lumbosacral region (principal); M50.30 Other cervical disc degeneration, unspecified cervical region; M99.71 Connective tissue and disc stenosis of intervertebral foramina of cervical region
CPT/HCPCS: 72050; 72110

== ENCOUNTER → 2022-01-01 | Outpatient (CLI) | payer OTHER ==
--- NOTE | 2022-01-01 10:46 | MR ---
EXAMINATION TYPE: MR lumbar spine wo con DATE OF EXAM: 01/01/2022 COMPARISON: Plain film 11/14/2021, lumbar MRI 04/06/2014 HISTORY: LBP, radiates into buttocks. TECHNIQUE: Multiplanar, multisequence images of the lumbar spine were acquired without IV contrast. There is some artifact, motion on exam L1-L2: Stable and unremarkable L2-L3: Minimal posterior disc bulge causes slight anterior mass effect on the thecal sac. L3-L4: There is facet arthropathy with hypertrophy ligamentum flavum causing some posterior lateral m ass effect on the thecal sac. Mild posterior broad-based disc bulge causes slight anterior mass effec t on the thecal sac L4-L5: Posterior disc bulge causes slight anterior mass effect on the thecal sac. There is facet arth ropathy with hypertrophy ligamentum flavum causing posterior lateral mass effect on the thecal sac. N o significant foraminal encroachment. L5-S1: No evident disc herniation, some mild facet arthropathy changes are noted Lumbar segments are intact. Rudimentary rib present at T12 bilaterally. Lumbar vertebral bodies show preserved height and alignment, there is multilevel spondylosis with endplate discogenic marrow sign al change. There is no significant spinal stenosis or foraminal encroachment. No paraspinal masses ar e identified. Conus medullaris has a normal appearance. Disc spaces show a similar appearance to evaristo or, some loss of disc height signal is greatest at L3-4, L2-3 but mild. IMPRESSION:
== END | disposition home or self-care (01) ==
LOC: RADMRIMAIN 08:49
PROVIDERS: ATTEND Family Medicine
DX: M51.16 Intervertebral disc disorders with radiculopathy, lumbar region (principal); M47.26 Other spondylosis with radiculopathy, lumbar region
CPT/HCPCS: 72148

== ENCOUNTER → 2022-03-04 | Outpatient (CLI) | payer OTHER ==
--- NOTE | 2022-03-05 15:57 | MM ---
Reason for Exam: Screening (asymptomatic). Last mammogram was performed 1 year(s) and 1 month(s) ago. Patient History: Menarche at age 9. First Full-Term at age 24. Other cancer, age 36. Maternal grandmother had breast cancer, age 50. Paternal aunt had breast cancer. Mother had breast cancer, age 48. Last menstrual period: 03/04/2022 Risk Values: Denise 5 year model risk: 1.5%. NCI Lifetime model risk: 19.9%. Prior Study Comparison: 10/19/2018 Bilateral Screening Mammogram, [facility]. 02/28/2020 Bilateral Screening Mammogram, [facility]. 03/01/2021 Bilateral Screening Mammogram, [facility]. Tissue Density: The breast tissue is heterogeneously dense. This may lower the sensitivity of mammography. Findings: Analyzed By CAD. No suspicious groups of microcalcifications, spiculated or lobular masses, architectural distortion or other secondary signs of malignancy are mammographically apparent. Overall Assessment: Benign, BI-RAD 2 Management: Screening Mammogram of both breasts in 1 year. A negative mammogram report should not preclude additional follow up of suspicious palpable abnormalities. Patient should continue monthly self breast exam. A clinical breast exam by your physician is recommended on an annual basis and results should be correlated with mammographic findings. Electronically signed and approved by: Ad Farfan D.O. Radiologis
== END | disposition home or self-care (01) ==
LOC: RADMAMWWP 07:58
PROVIDERS: ATTEND Family Medicine
DX: Z12.31 Encounter for screening mammogram for malignant neoplasm of breast (principal); Z80.3 Family history of malignant neoplasm of breast
CPT/HCPCS: 77063; 77067

== ENCOUNTER 2022-06-11 07:52 | Observation (INO) | payer OTHER ==
[2022-06-11] MEDS ORDERED: LORazepam 2 MG/ML INJ IV STA (08:05)
[2022-06-11] MEDS ORDERED: ASPIRIN 81 MG PO STA (08:05)
[2022-06-11] MEDS ORDERED: SODIUM CHLORIDE 0.9% 1,000 ML IV STA (08:05)
--- NOTE | 2022-06-11 08:06 | ED ---
General Adult HPI - General Chief complaint: Chest Pain Stated complaint: chest pain Time Seen by Provider: 06/11/22 07:59 Source: patient, RN notes reviewed, old records reviewed Mode of arrival: ambulatory Limitations: no limitations - History of Present Illness Initial comments: Patient is a 42-year-old female who presents emergency Department complaining of chest pain. She states she awoke this morning and then suddenly noticed that she was sitting that she began having some chest pressure sensation over for the center of her chest. Somewhat radiated to the right side. Endorses some mild shortness of breath with it. She is hyperventilating. Became concerned. States that the pain seemed to get worse at this time. Presents emergency dep artment for further evaluation. Does have a history of SVT and on verapamil No history of CAD, stents in herself but states she believes it does run in the family. Denies History of blood clots. Denies any lower extremity swelling. Denies any fevers, cough. Eyes any nausea or vomiting. Denies any abdominal pain. Denies any headaches. Denies any blurry vision. Denies any sweating episodes. Currently is hyperventilating in the room. She is no other acute complaints at this time. Presents for further evaluation at this time. States she did recently start new job but does not think that it is stressful enough to cause something like this. Denies any history of known panic attacks or anxiety episodes.Patient does state that she has had these episodes previously but typically does not come to this emergency department. States that her chest pressure and discomfort are worse this morning than they have been recently. - Related Data Home Medications Medication Instructions Recorded Confirmed HYDROcodone/APAP 10-325MG [[place] 1 tab PO Q6H PRN 09/04/17 06/11/19 10-325] Allergies Allergy/AdvReac Type Severity Reaction Status Date / Time No Known Allergies Allergy Verified 06/11/22 07:55 Review of Systems ROS Statement: Those systems with pertinent positive or pertinent negative responses have been documented in the HPI. Review of Systems: CONST: Denies fever EYES: Denies blurry vision ENT: Denies nasal congestion C/V: Endorses chest pressure RESP: Denies shortness of breath GI: Denies abdominal pain : Denies dysuria SKIN: Denies rash. MSK: Denies joint pain. NEURO: Denies headache ROS Other: All systems not noted in ROS Statement are negative. Past Medical History Past Medical History: Cancer Additional Past Medical History / Comment(s): SVT; chronic back pain, cervical CA History of Any Multi-Drug Resistant Organisms: None Reported Past Surgical History: Cholecystectomy, Tubal Ligation Additional Past Surgical History / Comment(s): part of cervix removed; bunionectomy, djd in neck and back Past Anesthesia/Blood Transfusion Reactions: No Reported Reaction Past Psychological History: No Psychological Hx Reported Smoking Status: Never smoker Past Alcohol Use History: Occasional Past Drug Use History: None Reported - Past Family History Mother Family Medical History: Cancer Additional Family Medical History / Comment(s): SMALL CELL LUNG CANCER. BRAIN METASTASIS Father Family Medical History: Cancer, Diabetes Mellitus, Deep Vein Thrombosis (DVT) General Exam - General Exam Comments Initial Comments: General: Patient is hyperventilating at bedside. Appears extremely anxious. HEAD: Normal with no signs of head trauma. EYES: PERRLA, EOMI, conjunctiva normal, no discharge. ENT: Hearing grossly intact, normal oropharynx. RESPIRATORY: Clear breath sounds bilaterally. No wheezes, rales, or rhonchi. C/V: Tachycardic with a regular rhythm. S1 and S2 auscultated. No peripheral edema. Peripheral pulses 2+ and intact throughout. ABD: Abd is soft, nontender, nondistended EXT: Normal range of motion, no obvious deformity SKIN: No rashes or lesions observed on exposed skin. NEURO: Alert and oriented 4. No focal deficits. Limitations: no limitations Course Vital Signs 06/11/22 06/11/22 06/11/22 07:52 09:15 09:37 Temperature 98.6 F Pulse Rate 129 H 79 87 Respiratory 28 H 16 16 Rate Blood Pressure 149/97 129/88 O2 Sat by Pulse 99 100 99 Oximetry 06/11/22 06/11/22 09:41 09:42 Temperature Pulse Rate 94 100 Respiratory 16 Rate Blood Pressure 144/82 120/93 O2 Sat by Pulse 97 Oximetry Medical Decision Making - Medical Decision Making Based on the patient's presentation and physical exam, I cannot rule out cardiopulmonary etiology for her current symptoms. We will obtain cardiac labs, screening d-dimer. Chest x-ray and EKG will be obtained. She'll be connected to continuous cardiac monitoring. She'll receive 324 mg of aspirin. I did discuss with her that it does look like she is having an anxiety component as her current symptoms and presentation to remind me of a panic attack. We will attempt to treat it with a small dose of Ativan at this time and she was in agreement this plan. Patient was in agreement this plan. Vital signs within acceptable limits, she is mildly tachycardic at bedside. EKG shows no signs of acute ischemia. Shows sinus tachycardia.Patient's chest x-ray as interpreted by me shows no acute cardiopulmonary process. Patient's laboratory studies are remarkable for an elevated d-dimer of 0.82. Troponin is undetectable. Remainder of labs are unremarkable. I did update the patient at this time. We've attempted treatment with Ativan as well as multiple nitroglycerin tablets without much effect on her chest pain. At this time we will trial morphine. I also discussed with her results of her workup and recommended we obtain CT imaging to rule out PE due to her atypical chest pain. She was in agreement this plan. CT PE is interpreted by radiology shows no evidence of pulmonary embolism. I also do not see any evidence of pulmonary embolism. On reevaluation, morphine did improve the patient's pain but this still not is 0. Due to the increased intensity of her pain since this morning, I did offer the patient observation admission. Heart score is low to moderate but she is continuing to have symptoms and we can trend her troponins have cardiology evaluate her here. She was in acute this plan. Echo was ordered. Cardiology was consulted. I did speak with Dr. Macias her admitting physician who accepted the patient. He requested a Covid swab which was ordered by myself. Patient was admitted to observation telemetry in stable condition. - Lab Data Result diagrams: 06/11/22 08:14 06/11/22 08:14 Lab Results 06/11/22 06/11/22 06/11/22 Range/Units 08:14 08:14 08:14 WBC 7.5 (3.8-10.6) k/uL RBC 3.90 (3.80-5.40) m/uL Hgb 12.9 (11.4-16.0) gm/dL Hct 37.5 (34.0-46.0) % MCV 96.1 (80.0-100.0) fL MCH 33.0 (25.0-35.0) pg MCHC 34.4 (31.0-37.0) g/dL RDW 12.5 (11.5-15.5) % Plt Count 331 (150-450) k/uL MPV 8.0 Neutrophils % 69 % Lymphocytes % 24 % Monocytes % 4 % Eosinophils % 1 % Basophils % 0 % Neutrophils # 5.2 (1.3-7.7) k/uL Lymphocytes # 1.8 (1.0-4.8) k/uL Monocytes # 0.3 (0-1.0) k/uL Eosinophils # 0.0 (0-0.7) k/uL Basophils # 0.0 (0-0.2) k/uL PT 10.1 (9.0-12.0) sec INR 0.9 (<1.2) APTT 24.3 (22.0-30.0) sec D-Dimer 0.82 H (<0.60) mg/L FEU Sodium 141 (137-145) mmol/L Potassium 3.6 (3.5-5.1) mmol/L Chloride 111 H (98-107) mmol/L Carbon Dioxide 23 (22-30) mmol/L Anion Gap 7 mmol/L BUN 9 (7-17) mg/dL Creatinine 0.67 (0.52-1.04) mg/dL Est GFR (CKD-EPI)AfAm >90 (>60 ml/min/1.73 sqM) Est GFR (CKD-EPI)NonAf >90 (>60 ml/min/1.73 sqM) Glucose 149 H (74-99) mg/dL Calcium 9.4 (8.4-10.2) mg/dL Magnesium 1.8 (1.6-2.3) mg/dL Total Bilirubin 0.5 (0.2-1.3) mg/dL AST 25 (14-36) U/L ALT 18 (4-34) U/L Alkaline Phosphatase 75 (38-126) U/L Troponin I (0.000-0.034) ng/mL NT-Pro-B Natriuret Pep pg/mL Total Protein 7.7 (6.3-8.2) g/dL Albumin 4.6 (3.5-5.0) g/dL 06/11/22 06/11/22 Range/Units 08:14 08:14 WBC (3.8-10.6) k/uL RBC (3.80-5.40) m/uL Hgb (11.4-16.0) gm/dL Hct (34.0-46.0) % MCV (80.0-100.0) fL MCH (25.0-35.0) pg MCHC (31.0-37.0) g/dL RDW (11.5-15.5) % Plt Count (150-450) k/uL MPV Neutrophils % % Lymphocytes % % Monocytes % % Eosinophils % % Basophils % % Neutrophils # (1.3-7.7) k/uL Lymphocytes # (1.0-4.8) k/uL Monocytes # (0-1.0) k/uL Eosinophils # (0-0.7) k/uL Basophils # (0-0.2) k/uL PT (9.0-12.0) sec INR (<1.2) APTT (22.0-30.0) sec D-Dimer (<0.60) mg/L FEU Sodium (137-145) mmol/L Potassium (3.5-5.1) mmol/L Chloride (98-107) mmol/L Carbon Dioxide (22-30) mmol/L Anion Gap mmol/L BUN (7-17) mg/dL Creatinine (0.52-1.04) mg/dL Est GFR (CKD-EPI)AfAm (>60 ml/min/1.73 sqM) Est GFR (CKD-EPI)NonAf (>60 ml/min/1.73 sqM) Glucose (74-99) mg/dL Calcium (8.4-10.2) mg/dL Magnesium (1.6-2.3) mg/dL Total Bilirubin (0.2-1.3) mg/dL AST (14-36) U/L ALT (4-34) U/L Alkaline Phosphatase (38-126) U/L Troponin I <0.012 (0.000-0.034) ng/mL NT-Pro-B Natriuret Pep 46 pg/mL Total Protein (6.3-8.2) g/dL Albumin (3.5-5.0) g/dL - EKG Data -: EKG Interpreted by Me EKG Comments: 12-lead Electrocardiogram Interpretation Note EKG was reviewed and interpreted by myself. 12-lead ECG performed at 0800 is interpreted by me as revealing sinus tachycardia at a rate of 104 beats per minute. [place] is normal. NM interval is 161 ms, QRS duration is 85 ms, QTc is 398 ms.. There were no ST or T wave abnormalities to suggest myocardial ischemia or injury. R wave progression across the precordium was satisfactory. By my interpretation this EKG is non-diagnostic for acute ischemia. There is a wandering baseline in the lateral precordial leads due to the patient's hyperventilation but no obvious signs of ST segment or T-wave abnormalities. When compared with prior EKG from 2019, no changes. Disposition Clinical Impression: Atypical chest pain Disposition: ADMITTED IP TO THIS HOSP Condition: Stable Time of Disposition: 10:30
[2022-06-11 08:36] LABS: Basophils % (A) 0 %; Eosinophils % (A) 1 %; HCT 37.5 % (34.0-46.0); HGB 12.9 gm/dL (11.4-16.0); Lymphocytes # (A) 1.8 k/uL (1.0-4.8); Lymphocytes % (A) 24 %; MCHC 34.4 g/dL (31.0-37.0); MCV 96.1 fL (80.0-100.0); Monocytes # (A) 0.3 k/uL (0-1.0); Monocytes % (A) 4 %; Neutrophils # (A) 5.2 k/uL (1.3-7.7); Neutrophils % (A) 69 %; Platelet Count 331 k/uL (150-450); RDW 12.5 % (11.5-15.5); WBC 7.5 k/uL (3.8-10.6)
[2022-06-11 08:49] LABS: INR 0.9 (<1.2); Partial Thromboplastin Time 24.3 sec (22.0-30.0); Prothrombin Time 10.1 sec (9.0-12.0)
[2022-06-11 08:58] LABS: ALT 18 U/L (4-34); AST 25 U/L (14-36); African American GFR (CKD) >90 (>60 ml/min/1.73 sqM); Albumin 4.6 g/dL (3.5-5.0); Alkaline Phosphatase 75 U/L (38-126); Anion Gap 7 mmol/L; Blood Urea Nitrogen 9 mg/dL (7-17); Calcium 9.4 mg/dL (8.4-10.2); Carbon Dioxide 23 mmol/L (22-30); Chloride 111 mmol/L (98-107); Glucose 149 mg/dL (74-99); Magnesium 1.8 mg/dL (1.6-2.3); Non-African American GFR(CKD) >90 (>60 ml/min/1.73 sqM); Potassium 3.6 mmol/L (3.5-5.1); Sodium 141 mmol/L (137-145); Total Bilirubin 0.5 mg/dL (0.2-1.3); Total Protein 7.7 g/dL (6.3-8.2)
--- NOTE | 2022-06-11 09:06 | XR ---
EXAMINATION TYPE: XR chest 2V DATE OF EXAM: 06/11/2022 COMPARISON: 06/11/2019 INDICATION: Chest pain TECHNIQUE: Frontal and lateral views of the chest are obtained. FINDINGS: The heart size is normal. The pulmonary vasculature is normal. The lungs are clear. IMPRESSION: 1. No acute pulmonary process.
[2022-06-11] MEDS: NITROGLYCERIN SL TABS 0.4 MG TAB SUBLINGUAL PRN ×2 (09:33→09:39)
[2022-06-11] MEDS ORDERED: MORPHINE SULFATE 4 MG/ML SYRINGE IVP STA (09:53)
--- NOTE | 2022-06-11 10:26 | CT ---
EXAMINATION TYPE: CT chest angio for PE CT DLP: 507.6 mGycm, Automated exposure control for dose reduction was used. DATE OF EXAM: 06/11/2022 9:33 AM COMPARISON: Chest radiograph from same day. Multiple CTs of the chest with most recent on . CLINICAL INDICATION:Female, 42 years old with history of elevated dimer, concern for PE; Elevated D-d katherine, Concern for PE TECHNIQUE/CONTRAST: CTA scan of the thorax is performed without and with IV Contrast, patient injected with 100 ml mL of Isovue 370, pulmonary embolism protocol. MIP images are created and reviewed. FINDINGS: Pulmonary Artery: There is no evidence for a filling defect within the pulmonary vasculature to sugge st acute pulmonary embolism. The pulmonary artery is of normal size. Lungs/Pleura: No evidence of focal consolidation, pleural effusion or pneumothorax. Airway: Large airways are patent. Heart: Heart is within normal limits for size.. Vasculature: No evidence of aortic aneurysm. Mediastinum: No gross evidence of adenopathy. Musculoskeletal: No acute osseous abnormalities Soft Tissues: Unremarkable. Lower neck: No significant findings. Upper Abdomen: Gallbladder surgically absent. IMPRESSION: No evidence of pulmonary embolism.
[2022-06-11] MEDS ORDERED: NALOXONE 0.4 MG/ML 1 ML VIAL IV PRN (10:40)
[2022-06-11] MEDS ORDERED: MORPHINE SULFATE 4 MG/ML SYRINGE IV PRN (10:40)
[2022-06-11] MEDS ORDERED: ONDANSETRON 4 MG/2 ML VIAL IVP STA (11:12)
[2022-06-11] MEDS ORDERED: HYDROcodone/APAP 10-325MG 1 EACH TAB PO PRN (13:49)
[2022-06-11] MEDS ORDERED: ONDANSETRON 4 MG/2 ML VIAL IVP PRN (14:15)
--- NOTE | 2022-06-11 14:15 | P.HPIM ---
History of Present Illness H&P Date: 06/11/22 Chief Complaint: Chest pain This a 42-year-old female with past medical history of SVT, chronic back pain, cervical cancer and multiple other medical issues presented to the ER with complaints of chest pressure. Reports palpitations, mid sternal chest pressure began shortly after she awakened this morning,while in the kitchen preparing for work, radiated to the right side of chest, occasionally fluctuates between her shoulder blades, accompanied by mild shortness of breath. Compliant with her med regimen including verapamil which patient stated she did take this mornin g.Denies excessive caffeine intake, alcohol intake or nicotine dependence. Denies lightheadedness, dizziness or focal deficits. 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 Reports her last stress and echo were completed 1 year ago and normal. She is a patient of Dr. Marrero. Denies nausea vomiting or diarrhea. Denies abdominal pain. Denies chills cough congestion or fevers.EKG sinus tachycardia . Troponins negative 4 .Chest x-ray reported no acute pulmonary process. D-dimer 0.82.Chest CTA reported no evidence of pulmonary embolism. Afebrile, normal WBC. Hematology unremarkable. Sodium 141, potassium 3.6, bicarb 23, BUN 9, creatinine 0.67, glucose 149, magnesium 1.8. Vidales virus not detected. Currently denies chest pain, palpitations or shortness of breath but complains of nausea secondary to the morphine she recently received. Review of Systems ROS Statement: Those systems with pertinent positive or pertinent negative responses have been documented in the HPI. ROS Other: All systems not noted in ROS Statement are negative. Past Medical History Past Medical History: Cancer Additional Past Medical History / Comment(s): SVT; chronic back pain, cervical CA History of Any Multi-Drug Resistant Organisms: None Reported Past Surgical History: Cholecystectomy, Tubal Ligation Additional Past Surgical History / Comment(s): part of cervix removed; bunionectomy, djd in neck and back Past Anesthesia/Blood Transfusion Reactions: No Reported Reaction Past Psychological History: No Psychological Hx Reported Smoking Status: Never smoker Past Alcohol Use History: Occasional Past Drug Use History: None Reported - Past Family History Mother Family Medical History: Cancer Additional Family Medical History / Comment(s): SMALL CELL LUNG CANCER. BRAIN METASTASIS Father Family Medical History: Cancer, Diabetes Mellitus, Deep Vein Thrombosis (DVT) Medications and Allergies Home Medications Medication Instructions Recorded Confirmed Type HYDROcodone/APAP 10-325MG [[place] 1 tab PO TID PRN 09/04/17 06/11/22 History 10-325] Verapamil HCl [Verapamil ER] 240 mg PO DAILY 06/11/22 06/11/22 History Vitamin C Gummy 1 tab PO DAILY 06/11/22 06/11/22 History Allergies Allergy/AdvReac Type Severity Reaction Status Date / Time No Known Allergies Allergy Verified 06/11/22 07:55 Physical Exam Vitals: Vital Signs Temp Pulse Resp BP Pulse Ox 06/11/22 10:45 98 F 84 17 139/89 98 06/11/22 09:42 100 16 120/93 97 06/11/22 09:41 94 144/82 06/11/22 09:37 87 16 129/88 99 06/11/22 09:15 79 16 100 06/11/22 07:52 98.6 F 129 H 28 H 149/97 99 Intake and Output 06/10/22 06/11/22 06/11/22 22:59 06:59 14:59 Other: Weight 86.183 kg PHYSICAL EXAM: VITAL SIGNS: [As above] GENERAL: Sitting up on stretcher, no acute distress HEENT: Conjunctivae normal. eyes normal. NECK: Supple, No JVD. No thyroid enlargement. No LNs CARDIOVASCULAR: S1, S2 regular. No murmur RESPIRATION: Breath sounds diminished in the bases. No rhonchi or crackles. No bronchial breathing. ABDOMEN: Soft, nontender . No guarding. no masses palpable. No ascites, No hepatosplenomegaly.Bowel sounds heard. LEGS: No edema. no swelling PSYCHIATRY: Alert and oriented X3, mood and affect normal. NERVOUS SYSTEM: Cranial N 2-12 grossly normal.No focal deficits. Strength and sensation grossly intact.. Skin: Warm and dry, no rash Results CBC & Chem 7: 06/11/22 08:14 06/11/22 08:14 Labs: Abnormal Lab Results - Last 24 Hours (Table) 06/11/22 06/11/22 Range/Units 08:14 08:14 D-Dimer 0.82 H (<0.60) mg/L FEU Chloride 111 H (98-107) mmol/L Glucose 149 H (74-99) mg/dL Assessment and Plan Assessment: Chest pain, in a patient with SVT, troponins negative 2, cardiology on consult. History of cervical cancer Obesity, BMI 29.8 Chronic back pain Plan: Continue on current medication regime ,monitoring and symptomatic treatment. Echo pending. Cardiology consult in place, recommendations pending. Home med list not yet obtained/updated. Maintain supportive care. The impression and plan of care has been dictated as directed. : I performed a history and examination of this patient, discussed the same with the dictator. I agree with the dictator's note ,documented as a scribe. Any additional findings or plans will be noted.
[2022-06-11] MEDS: PANTOPRAZOLE 40 MG/10 ML VIAL IVP SCH (14:41)
[2022-06-11] MEDS: HEPARIN SODIUM,PORCINE/PF 5,000 UNIT/0.5 ML SYRINGE SQ SCH ×2 (16:52→23:32)
[2022-06-12 06:45] VITALS: PULSE 69; RESP 18; TEMP 97.4
[2022-06-12] MEDS: HEPARIN SODIUM,PORCINE/PF 5,000 UNIT/0.5 ML SYRINGE SQ SCH (07:57)
[2022-06-12] MEDS: PANTOPRAZOLE 40 MG/10 ML VIAL IVP SCH (08:37)
--- NOTE | 2022-06-12 09:55 | P.CRDCN ---
History of Present Illness Consult date: 06/11/22 History of present illness: HISTORY OF PRESENT ILLNESS: This is a 42-year-old female with a past medical history significant for sinus tachycardia, chest pain, and childhood asthma. Patient follows in the office with Dr. Mandel. We have been asked to see the patient in consultation for chest pain. Patient examined at the bedside. Patient gives a history of chronic chest pain. She states yesterday the pain was worse than normal and would not go away. She states the pain was in the middle of her chest and radiated to both sides of her chest. She reports when short of breath as well which is new for her. She also reports feeling diaphoretic. She denied any nausea or vomiting. She reports feeling palpitations. She states she had another episode of chest pain and palpitations this morning around 5 AM. * EKG reveals sinus tachycardia with a heart rate of 104. No signs of acute ischemia. * Chest xray negative for acute process * Chest CT: Negative for PE * Laboratory data: WBC 7.5. Hemoglobin 12.9. Platelet count 331. D-dimer 0.82 . Sodium 141. Potassium 3.6. BUN 9. Creatinine 0.67. Troponin negative 2. ProBNP 46. * Current home cardiac medications include verapamil 240 mg daily * Most recent echocardiogram obtained in 2019 revealed ejection fraction 55%, mild MR, mild TR * Patient underwent exercise stress test in June 2019 which was negative for stress-induced ischemia REVIEW OF SYSTEMS: At the time of my exam: CONSTITUTIONAL: Denies fever or chills. HEENT: Denies blurred vision, vision changes, or eye pain. Denies hemoptysis CARDIOVASCULAR: Denies chest pain. Denies orthopnea. Denies PND. Denies palpitations RESPIRATORY: Denies shortness of breath. GASTROINTESTINAL: Denies abdominal pain. Denies nausea or vomiting. HEMATOLOGIC: Denies bleeding disorders. GENITOURINARY: Denies any blood in urine. SKIN: Denies pruitis. Denies rash. PHYSICAL EXAM: VITAL SIGNS: Reviewed. GENERAL: Well-developed in no acute distress. HEENT: Head is normocephalic. Pupils are equal, round. Sclerae anicteric. Mucous membranes of the mouth are moist. Neck supple. No JVD or thyromegaly LUNGS: Respirations even and unlabored. Lungs essentially clear to auscultation bilaterally. HEART: Regular rate and rhythm. S1 and S2 heard. ABDOMEN: Soft. Nondistended. Nontender. EXTREMITIES: Normal range of motion. No clubbing or cyanosis. Peripheral pulses intact. No lower extremity edema NEUROLOGIC: Awake and alert. Oriented x 3. ASSESSMENT: Chest pain, troponin negative x 3 Chronic chest pain of unknown etiology History of sinus tachycardia, on verapamil History of childhood asthma Chronic back pain PLAN: An acute coronary event has been ruled out Resume home cardiac medications Obtain 2-D echo to assess cardiac structure and function Patient to undergo stress echocardiogram today to assess for ischemia Further recommendations pending patient course Nurse practitioner note has been reviewed by physician. Signing provider agrees with the documented findings, assessment, and plan of care. Past Medical History Past Medical History: Cancer Additional Past Medical History / Comment(s): SVT; chronic back pain, cervical CA History of Any Multi-Drug Resistant Organisms: None Reported Past Surgical History: Cholecystectomy, Tubal Ligation Additional Past Surgical History / Comment(s): part of cervix removed; bunionectomy, djd in neck and back Past Anesthesia/Blood Transfusion Reactions: No Reported Reaction Past Psychological History: No Psychological Hx Reported Smoking Status: Never smoker Past Alcohol Use History: Occasional Past Drug Use History: None Reported - Past Family History Mother Family Medical History: Cancer Additional Family Medical History / Comment(s): SMALL CELL LUNG CANCER. BRAIN METASTASIS Father Family Medical History: Cancer, Diabetes Mellitus, Deep Vein Thrombosis (DVT) Medications and Allergies Home Medications Medication Instructions Recorded Confirmed Type HYDROcodone/APAP 10-325MG [[place] 1 tab PO TID PRN 09/04/17 06/11/22 History 10-325] Verapamil HCl [Verapamil ER] 240 mg PO DAILY 06/11/22 06/11/22 History Vitamin C Gummy 1 tab PO DAILY 06/11/22 06/11/22 History Allergies Allergy/AdvReac Type Severity Reaction Status Date / Time No Known Allergies Allergy Verified 06/11/22 07:55 Physical Exam Vitals: Vital Signs Temp Pulse Resp BP Pulse Ox 06/11/22 13:20 79 16 138/80 98 06/11/22 10:45 98 F 84 17 139/89 98 06/11/22 09:42 100 16 120/93 97 06/11/22 09:41 94 144/82 06/11/22 09:37 87 16 129/88 99 06/11/22 09:15 79 16 100 06/11/22 07:52 98.6 F 129 H 28 H 149/97 99 Intake and Output 06/10/22 06/11/22 06/11/22 22:59 06:59 14:59 Other: Weight 86.183 kg Results 06/11/22 08:14 06/11/22 08:14 Cardiac Enzymes 06/11/22 06/11/22 06/11/22 Range/Units 08:14 08:14 12:03 AST 25 (14-36) U/L Troponin I <0.012 <0.012 (0.000-0.034) ng/mL Coagulation 06/11/22 Range/Units 08:14 PT 10.1 (9.0-12.0) sec APTT 24.3 (22.0-30.0) sec CBC 06/11/22 Range/Units 08:14 WBC 7.5 (3.8-10.6) k/uL RBC 3.90 (3.80-5.40) m/uL Hgb 12.9 (11.4-16.0) gm/dL Hct 37.5 (34.0-46.0) % Plt Count 331 (150-450) k/uL Comprehensive Metabolic Panel 06/11/22 Range/Units 08:14 Sodium 141 (137-145) mmol/L Potassium 3.6 (3.5-5.1) mmol/L Chloride 111 H (98-107) mmol/L Carbon Dioxide 23 (22-30) mmol/L BUN 9 (7-17) mg/dL Creatinine 0.67 (0.52-1.04) mg/dL Glucose 149 H (74-99) mg/dL Calcium 9.4 (8.4-10.2) mg/dL AST 25 (14-36) U/L ALT 18 (4-34) U/L Alkaline Phosphatase 75 (38-126) U/L Total Protein 7.7 (6.3-8.2) g/dL Albumin 4.6 (3.5-5.0) g/dL Current Medications Generic Name Dose Route Start Last Admin Trade Name Freq PRN Reason Stop Dose Admin Hydrocodone Bitart/Acetaminophen 1 each 06/11/22 13:49 Hydrocodone/Apap 10-325mg 1 Each Tab PO TID PRN Pain Heparin Sodium (Porcine) 5,000 unit 06/11/22 16:00 Heparin Sodium,Porcine/Pf 5,000 Unit/0.5 Ml Syringe SQ Q8HR DEONTE Morphine Sulfate 4 mg 06/11/22 10:40 Morphine Sulfate 4 Mg/Ml Syringe IV Q4HR PRN Severe Pain (Scale 7 to 10) Naloxone HCl 0.2 mg 06/11/22 10:40 Naloxone 0.4 Mg/Ml 1 Ml Vial IV Q2M PRN Opioid Reversal Nitroglycerin 0.4 mg 06/11/22 09:02 06/11/22 09:39 Nitroglycerin Sl Tabs 0.4 Mg Tab SUBLINGUAL 0.4 mg Q5M PRN Administration Chest Pain Non-Formulary Medication 240 mg 06/12/22 09:00 Verapamil Hcl [Verapamil Er] PO DAILY DEONTE Pantoprazole Sodium 40 mg 06/11/22 14:00 Pantoprazole 40 Mg/10 Ml Vial IVP DAILY DEONTE Intake and Output 06/10/22 06/11/22 06/11/22 22:59 06:59 14:59 Other: Weight 86.183 kg Patient Weight 06/12/22 06:59 Weight 86.183 kg 06/11/22 08:14 06/11/22 08:14
[2022-06-12] MEDS: VERAPAMIL SR 240 MG TABLET.ER PO SCH ×2 (10:59→11:08)
[2022-06-12 11:09] VITALS: BP 109/55
[2022-06-12 11:31] LABS: Basophils # (A) 0.03 X 10*3/uL (0.00-0.10); Basophils % (A) 0.5 %; Eosinophils # (A) 0.05 X 10*3/uL (0.04-0.35); Eosinophils % (A) 0.9 %; HCT 36.1 % (37.2-46.3); Immature Grans, Automated 0 %; Lymphocytes # (A) 2.13 X 10*3/uL (0.90-5.00); MCH 32.5 pg (27.0-32.0); MCHC 33.2 g/dL (32.0-37.0); MCV 97.8 fL (80.0-97.0); Mean Platelet Volume 10.8 fL (9.5-12.2); Monocytes % (A) 8.9 %; NRBC Per 100 WBC 0 /100 WBCS (0.0-0.0); Neutrophils # (A) 2.89 X 10*3/uL (1.80-7.70); Neutrophils % (A) 51.7 %; Platelet Count 346 X 10*3/uL (140-440); RBC 3.69 X 10*6/uL (4.10-5.20); RDW 13.2 % (11.5-14.5)
[2022-06-12 11:32] LABS: African American GFR (CKD) 103.9 (60.0-200.0); Anion Gap 9.9 mmol/L (10.00-18.00); BUN/Creat Ratio 9.88 Ratio (12.00-20.00); Blood Urea Nitrogen 7.9 mg/dL (9.0-27.0); Calcium 9.5 mg/dL (8.7-10.3); Carbon Dioxide 26.1 mmol/L (20.0-27.5); Non-African American GFR(CKD) 89.7 (60.0-200.0); Potassium 4.4 mmol/L (3.5-5.5)
--- NOTE | 2022-06-12 13:00 | CA ---
Stress Echo Report Lori Serna Age: 42 Gender: F : 1980 Exam Date: 06/12/2022 09:47 Exam Location: [facility] Ht (in): 68 Wt (lb): 190 Ordering Physician: Kamille Gonzalez Referring Physician: [id number] Clean Room Assembler: Margaret Jean RDCS Technologist Procedure CPT: Indication: CP ICD-9 Codes: Rhythm: Patient History: CHEST PAIN, DIFFICULTY IN BREATHING, PALPITATIONS, ANGINA, NUMBNESS IN FACE/NECK, FAMILY HX OF HEART DISEASE Cardiac Medications: Medications in past 24 hours: Contrast: Stress Results Protocol: Yovanny Total dose(mL): Exercise Duration (min:sec): Max ST Depression (mm): Angina Score: Espinosa Score: METS: 10.5 Resting HR: 104 Resting BP: 132 / 66 Peak HR: 161 Peak BP: 214 / 68 Max Predicted HR: 176 91 % Max Predicted HR Target HR: 150 Double Product: [id number] Stress Summary: BP Response: Reason for Termination: Cardiac Symptoms: ECG Analysis Resting ECG: Stress ECG: Arrhythmia: Echo Analysis Resting Echo: Peak Echo Analysis: MEASUREMENTS (Male/Female) Normal Values CONCLUSIONS Excellent exercise tolerance Normal EKG in response to exercise Normal echocardiogram in response to exercise Dr. Deric Mandel MD (Electronically Signed) Final Date: 12 June 2022 12:59
--- NOTE | 2022-06-12 13:01 | CA ---
Transthoracic Echo Report Name: Lori Serna Age: 42 Gender: F : 1980 Exam Date: 06/12/2022 08:11 Exam Location: [facility] Ht (in): 67 Wt (lb): 190 Ordering Physician: Brian Lauren MD Attending/Referring Phys: Daytime Caregiver Cathy Morrell RDCS Procedure CPT: Indications: atypical chest pain Cardiac Hx: Technical Quality: Good Contrast 1: Total Dose (mL): Contrast 2: Total Dose (mL): MEASUREMENTS (Male / Female) Normal Values 2D ECHO LV Diastolic Diameter PLAX 4.2 cm 4.2 - 5.9 / 3.9 - 5.3 cm LV Systolic Diameter PLAX 3.1 cm IVS Diastolic Thickness 1.4 cm 0.6 - 1.0 / 0.6 - 0.9 cm LVPW Diastolic Thickness 1.3 cm 0.6 - 1.0 / 0.6 - 0.9 cm LV Relative Wall Thickness 0.6 RV Internal Dim ED PLAX 3.0 cm LA Systolic Diameter LX 3.4 cm 3.0 - 4.0 / 2.7 - 3.8 cm LA Volume 44.6 cm??? 18 - 58 / 22 - 52 cm??? M-MODE Aortic Root Diameter MM 3.0 cm MV E Point Septal Separation 0.4 cm AV Cusp Separation MM 2.4 cm DOPPLER AV Peak Velocity 163.5 cm/s AV Peak Gradient 10.7 mmHg MV Area PHT 4.5 cm??? Mitral E Point Velocity 102.6 cm/s Mitral A Point Velocity 74.0 cm/s Mitral E to A Ratio 1.4 MV Deceleration Time 167.1 ms MV E' Velocity 8.9 cm/s Mitral E to MV E' Ratio 11.5 TR Peak Velocity 225.0 cm/s TR Peak Gradient 20.2 mmHg Right Ventricular Systolic Press 24.3 mmHg FINDINGS Left Ventricle Left ventricular ejection fraction is estimated at 60-65 %. Left ventricular cavity size normal. Moderate concentric left ventricular hypertrophy. Right Ventricle Normal right ventricular size and function. Right ventricular systolic pressure within normal limits. Right Atrium Normal right atrial size. Left Atrium Normal left atrial size. No evidence for an atrial septal defect. Mitral Valve Structurally normal mitral valve. mild to moderate mitral regurgitation. Aortic Valve Trileaflet aortic valve. No aortic valve stenosis or regurgitation. Tricuspid Valve Structurally normal tricuspid valve. Mild tricuspid regurgitation. Pulmonic Valve Structurally normal pulmonic valve. Trace pulmonic regurgitation. Pericardium Normal pericardium. No pericardial effusion. Aorta Normal size aortic root and proximal ascending aorta. CONCLUSIONS Normal biventricular dimension and systolic function Mild to moderate MR Previewed by: Dr. Deric Mandel MD (Electronically Signed) Final Date: 12 June 2022 13:00
--- NOTE | 2022-06-12 14:41 | P.DS ---
Providers Date of admission: 06/11/22 10:47 Expected date of discharge: 06/12/22 Attending physician: Venu Macias Primary care physician: Juanito Cherry [facility] Course: Final Diagnoses: Chest pain, in a patient with SVT, troponins negative, cardiology following, stress tests pending History of cervical cancer Obesity, BMI 29.8 Chronic back pain Hospital course:This a 42-year-old female with past medical history of SVT, chronic back pain, cervical cancer and multiple other medical issues presented to the ER with complaints of chest pressure. Reports palpitations, mid sternal chest pressure began shortly after she awakened this morning,while in the kitchen preparing for work, radiated to the right side of chest, occasionally fluctuates between her shoulder blades, accompanied by mild shortness of breath. Compliant with her med regimen including verapamil which patient stated she did take this morning.Denies excessive caffeine intake, alcohol intake or nicotine dependence. Denies lightheadedness, dizziness or focal deficits. 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 Reports her last stress and echo were completed 1 year ago and normal. She is a patient of Dr. Mandel's. Denies nausea vomiting or diarrhea. Denies abdominal pain. Denies chills cough congestion or fevers.EKG sinus tachycardia . Troponins negative 4 .Chest x-ray reported no acute pulmonary process. D-dimer 0.82.Chest CTA reported no evidence of pulmonary embolism. Afebrile, normal WBC. Hematology unremarkable. Sodium 141, potassium 3.6, bicarb 23, BUN 9, creatinine 0.67, glucose 149, magnesium 1.8. Vidales virus not detected. Currently denies chest pain, palpitations or shortness of breath but complains of nausea secondary to the morphine she recently received. Evaluated by cardiology, stress echo pending. Significant clinical improvement. Patient will be discharged home today in a stable condition with guarded prognosis pending stress test last 2-D echo results, final DC recommendations and clearance per cardiology. The impression and plan of care has been dictated as directed. : I performed a history and examination of this patient, discussed the same with the dictator. I agree with the dictator's note ,documented as a scribe. Any additional findings or plans will be noted. Patient Condition at Discharge: Stable Plan - Discharge Summary New Discharge Prescriptions: Continue HYDROcodone/APAP 10-325MG [[place] 10-325] 1 tab PO TID PRN PRN Reason: Pain Verapamil HCl [Verapamil ER] 240 mg PO DAILY Vitamin C Gummy 1 tab PO DAILY Discharge Medication List HYDROcodone/APAP 10-325MG [[place] 10-325] 1 tab PO TID PRN 09/04/17 [History] Verapamil HCl [Verapamil ER] 240 mg PO DAILY 06/11/22 [History] Vitamin C Gummy 1 tab PO DAILY 06/11/22 [History] Follow up Appointment(s)/Referral(s): Deric Mandel MD [STAFF PHYSICIAN] - 1 Week (CARDIOLOGY'S OFFICE WILL CALL YOU WITH APPOINTMENT DATE AND TIME.) Juanito Cherry MD [Primary Care Provider] - 3 Days (CALL AND SCHEDULE APPOINTMENT.) Patient Instructions/Handouts: Chest Pain (DC)
== END 2022-06-12 14:47 | disposition home or self-care (01) ==
LOC: EC 07:52 → 6NMEDSUR 10:47
PROVIDERS: ADMIT Family Medicine; ATTEND Family Medicine
DX: R07.89 Other chest pain (principal); R06.4 Hyperventilation; R61 Generalized hyperhidrosis; R00.0 Tachycardia, unspecified; R00.2 Palpitations; F41.9 Anxiety disorder, unspecified; E66.9 Obesity, unspecified; Z68.29 Body mass index [BMI] 29.0-29.9, adult; Z20.822 Contact with and (suspected) exposure to COVID-19; G89.29 Other chronic pain; M54.9 Dorsalgia, unspecified; I47.1 Supraventricular tachycardia; Z85.41 Personal history of malignant neoplasm of cervix uteri; Z90.49 Acquired absence of other specified parts of digestive tract; Z98.51 Tubal ligation status; Z98.890 Other specified postprocedural states; Z82.49 Family history of ischemic heart disease and other diseases of the circulatory system; Z80.1 Family history of malignant neoplasm of trachea, bronchus and lung; Z80.8 Family history of malignant neoplasm of other organs or systems; Z83.3 Family history of diabetes mellitus; Z79.899 Other long term (current) drug therapy
CPT/HCPCS: 96376; 96372 ×2; 96361; 96374; 96375; 99285; 36415; 93005; 93306; 93351; 85379; 83880; 80053; 80048; 83735; 84484; 85025 ×2; 85610; 85730; 87635; 71046; 71275; G0378 ×2; J2060; J2270; J2405; C9113 ×2; Q9967; J1644 ×2

== ENCOUNTER → 2022-11-21 | Outpatient (CLI) | payer OTHER ==
[2022-11-21 20:23] LABS: INR 0.92 (0.90-1.11); Prothrombin Time 10.4 sec (9.9-11.9)
[2022-11-21 21:01] LABS: Basophils # (A) 0.03 X 10*3/uL (0.00-0.10); Basophils % (A) 0.5 %; Eosinophils # (A) 0.08 X 10*3/uL (0.04-0.35); Eosinophils % (A) 1.4 %; HCT 34.4 % (37.2-46.3); HGB 11.3 g/dL (12.0-15.0); Immature Grans, Automated 0.2 %; Lymphocytes # (A) 2.13 X 10*3/uL (0.90-5.00); Lymphocytes % (A) 38.3 %; MCH 31.9 pg (27.0-32.0); MCHC 32.8 g/dL (32.0-37.0); MCV 97.2 fL (80.0-97.0); Mean Platelet Volume 10.9 fL (9.5-12.2); Monocytes # (A) 0.51 X 10*3/uL (0.20-1.00); Monocytes % (A) 9.2 %; NRBC Per 100 WBC 0 /100 WBCS (0.0-0.0); Neutrophils % (A) 50.4 %; Platelet Count 247 X 10*3/uL (140-440); RBC 3.54 X 10*6/uL (4.10-5.20); RDW 13.2 % (11.5-14.5); WBC 5.56 X 10*3/uL (4.50-10.00)
[2022-11-21 21:33] LABS: African American GFR (CKD) 103.9 (60.0-200.0); Anion Gap 8.2 mmol/L (10.00-18.00); BUN/Creat Ratio 11.25 Ratio (12.00-20.00); Calcium 9.9 mg/dL (8.7-10.3); Carbon Dioxide 28.8 mmol/L (20.0-27.5); Non-African American GFR(CKD) 89.7 (60.0-200.0); Potassium 4.1 mmol/L (3.5-5.5)
== END | disposition home or self-care (01) ==
LOC: LABWHC1 14:45
PROVIDERS: ATTEND Internal Medicine Clinical Cardiac Electrophysiology
DX: I47.1 Supraventricular tachycardia (principal)
CPT/HCPCS: 36415; 80048; 85025; 85610